=== PATIENT | female | born 1950 | race Caucasian/White ===

== ENCOUNTER → 2017-09-06 | Outpatient (CLI) | payer MEDICARE ==
--- NOTE | 2017-09-09 07:54 | MM ---
Reason for exam: screening (asymptomatic). Last mammogram was performed 9 years and 4 months ago. History: Patient is postmenopausal. Taking estrogen for 5 years 5 months beginning at age 52. Taking progesterone for 3 years 5 months beginning at age 54. Physical Findings: A clinical breast exam by your physician is recommended on an annual basis and results should be correlated with mammographic findings. MG Screening Mammo w CAD Bilateral CC and MLO view(s) were taken. Prior study comparison: May 20, 2008, bilateral digital screening mammogram. December 03, 2006, left diagnostic mammogram w/CAD. February 20, 2006, bilateral workup diagnostic mammogram. The breast tissue is heterogeneously dense. This may lower the sensitivity of mammography. No significant changes when compared with prior studies. ASSESSMENT: Negative, BI-RAD 1 RECOMMENDATION: Routine screening mammogram of both breasts in 1 year.
== END | disposition home or self-care (01) ==
LOC: RADMAMWWP 09:37
PROVIDERS: ATTEND Internal Medicine
DX: Z12.31 Encounter for screening mammogram for malignant neoplasm of breast (principal)

== ENCOUNTER → 2022-10-22 | Day surgery (SDC) | payer MEDICARE ==
[2022-10-18 15:33] VITALS: BMI 32.4
[~2022-10-22] MED LIST: ALPRAZolam 0.25 MG TAB PO PRN; ALPRAZolam 0.5 MG TAB PO PRN; ASPIRIN 325 MG TAB PO ONE; ASPIRIN 81 MG PO SCH; DILTIAZEM CD 300 MG CAP.ER.24H PO SCH; HEPARIN SODIUM 1,000 UN/ML (10ML VL) IV ONE; IOPAMIDOL-370 125ML BTL INJ ONE; LIDOCAINE 1% INJ 10MG/ML (5 ML VIAL-PF) SQ ONE; METOPROLOL SUCCINATE (ER) 50 MG TAB.ER.24H PO SCH; MIDAZOLAM 2 MG/2 ML VIAL IV ONE; NITROGLYCERIN 1000MCG/10ML SYRINGE INTRACORON ONE; NITROGLYCERIN SL TABS 0.4 MG TAB SUBLINGUAL PRN; RX INFO: IV CONTRAST WAS GIVEN 1 EACH MISC MISCELLANE PRN; SODIUM CHLORIDE 0.9% 1,000 ML IV SCH; SODIUM CHLORIDE 0.9% 1,000 ML in EMPTY BAG 1 BAG IV SCH; VERAPAMIL SYRINGE (5 MG/10 ML) INTRAARTER ONE; fentaNYL (PF) 50 MCG/ML 2 ML AMP IV ONE; traZODone HCL 100 MG TAB PO SCH
[2022-10-22 06:55] VITALS: RESP 16; TEMP 98.2
--- NOTE | 2022-10-22 08:46 | P.CARDCATH ---
Date of Procedure: 10/22/22 Description of Procedure: Cardiac Catheterization: The patient is a 73-year-old female with a known history of hypertension, hyperlipidemia and has been complaining of symptoms of chest discomfort and dyspnea on exertion. She had an abnormal MPI. Recommendations were made regarding cardiac catheterization, the risks and the complications were discussed with the patient who is in full understanding and agreement. Procedure Description: Patient was brought to [facility] in fasting semi-sedated state after receiving Fentanyl and Benadryl achieiving moderate conscious sedated state. Using Xylocaine Anesthesia and Seldinger technique, a 6-[place] sheath was introduced in the right radial artery . Subsequently, selective coronary angiography was performed using a 5-[place] 3.5 bend Lala catheter. Multiple views of the coronary artery including hemiaxial views were obtained. The right Lala catheter was used to cross the aortic valve and LVEDP was calculated. Following that and after removing the catheters a 6-[place] 3.75 EBU guiding catheter was introduced and the system, after cannulating the left main attempt to advance an Omni Doppler wire were unsuccessful, the guiding catheter was exchanged to a 6-[place] Lala 3.5 left catheter and the Omni Doppler flow wire was positioned in the mid LAD. IFR was calculated. Following that, catheter and sheath were removed. Hemostasis was obtained with deployment of TR band . There was no immediate complication. Patient was returned to room in stable condition. Of note, the patient received a total of 5000 units of intravenous heparin as well as intra-arterial verapamil. Findings: Left main: This is a large size vessel, bifurcating into LAD and left circumflex, distal left main has 10-20% plaque. LAD: This is a large size vessel, reaching to the apex, giving rise to a very proximal factor branch, after the diagonal branch there is an eccentric 50% plaque, the rest of the vessel has no high-grade stenosis Left circumflex: This is a nondominant vessel, giving rise to 3 obtuse marginal branch that has no evidence of high-grade stenosis RCA: Is is a large dominant vessel, bifurcating into PDA and PLV, the RCA has no evidence of high-grade stenosis Left Ventriculogram: Not performed Hemodynamics: There was no gradient across the aortic valve , LVEDP was 18-22 mmHg Conclusion: 1. Moderate disease in the proximal LAD with IFR of 0.89 2. No evidence of obstructive disease in the left circumflex and RCA 3. Right dominance 4. Elevated LVEDP Recommendations: I have recommended aggressive coronary risks modifications. The findings and the recommendations were discussed with the patient and the family and they were in full understanding and agreement. Duration of sedation is 36 minutes.
[2022-10-22 17:23] VITALS: BP 121/57; PULSE 52
== END | disposition home or self-care (01) ==
LOC: CATHCVL 06:13
PROVIDERS: ATTEND Internal Medicine Interventional Cardiology
DX: R07.9 Chest pain, unspecified (principal); I10 Essential (primary) hypertension; E78.2 Mixed hyperlipidemia; Z79.01 Long term (current) use of anticoagulants; Z79.899 Other long term (current) drug therapy
CPT/HCPCS: 93458; 93799; C1887 ×2; C1769 ×3; C1894; J2250; J2001; J3010; J1644; Q9967